=== PATIENT | female | born 1970 | race Caucasian/White ===

== ENCOUNTER 2016-04-26 12:16 | Day surgery (SDC) ==
[~2016-04-26 12:16] MED LIST: KEFZOL 1 GM/D5W 50 ML ONE; LR 1,000 ML ONE; PEPCID ONE; REGLAN ONE
[2016-04-26] MEDS ORDERED: PERCOCET-10 ONE (12:28)
[2016-04-26 12:38] LABS: HEMATOCRIT 35.8 % (37.0-47.0); HEMOGLOBIN 11.9 g/dL (12.0-16.0); MCH 28.3 PG (27-31); MCHC 33.2 g/dL (33-37); MCV 85.2 FL (81-99); MPV 9.3 FL (7.4-10.4); RBC 4.2 XMIL (4.2-5.4)
[2016-04-26 14:25] LABS: AGAP 13; BUN 15 mg/dL (8-22); CALCIUM 9.2 mg/dL (8.8-10.2); CHLORIDE 100 mmol/L (98-107); COSMO 274; POTASSIUM 4.2 mmol/L (3.5-5.1); SODIUM 137 mmol/L (136-145); TCO2 24 mmol/L (25-35)
--- NOTE | 2016-04-26 14:32 | EKG Report ---
Test Performed on : 04/26/2016 11:46:09 AM Test Reason : PER ANESTHESIA ORDERS Blood Pressure : / mmHG Vent. Rate : 058 BPM Atrial Rate : 058 BPM P-R Int : 172 ms QRS Dur : 088 ms QT Int : 446 ms P-R-T Axes : 063 045 055 degrees QTc Int : 437 ms Sinus bradycardia. with sinus arrhythmia. Otherwise normal ECG When compared with ECG of 21-AUG-2015 00:12, premature ventricular complexes. are no longer present T wave inversion no longer evident in Inferior leads T wave inversion no longer evident in Anterior leads Confirmed by Burt Heath MD ([id number]) on 04/27/2016 9:45:22 PM
[2016-04-26] MEDS ORDERED: HEPARIN ONE ×2 (15:07→15:47)
[2016-04-26] MEDS ORDERED: XYLOCAINE 1%/EPI 1:100,000 ONE (15:07)
[2016-04-26] MEDS ORDERED: MARCAINE 0.25% PF/EPI 1:200,000 ONE (15:08)
[2016-04-26] MEDS ORDERED: NS 250 ML ONE (15:08)
[2016-04-26] MEDS: MORPHINE ONE ×4 (16:13→16:43)
[2016-04-26] MEDS ORDERED: FENTANYL ONE (16:17)
[2016-04-26] MEDS ORDERED: DIPRIVAN 1% ONE (16:17)
[2016-04-26 18:15] VITALS: BP 133/80
--- NOTE | 2016-04-26 22:22 | OPERATIVE NOTE ---
PROCEDURE DATE: 04/26/2016 PREOPERATIVE DIAGNOSIS: Methicillin-resistant Staphylococcus aureus infection skin and soft tissue status post bilateral breast reduction. POSTOPERATIVE DIAGNOSIS: Methicillin-resistant Staphylococcus aureus infection skin and soft tissue status post bilateral breast reduction. PRINCIPAL PROCEDURE: Right external jugular Port-A-Cath using fluoroscopy. SURGEON: Angela Mayo MD PENCILS WASHER: MORGAN Jj. ANESTHESIA: General using LMA in addition to local anesthetic. ESTIMATED BLOOD LOSS: 10 mL. DRAINS: None. INDICATIONS: Ms Stacey Sheikh is a 45-year-old white female who has had a chronic MRSA infection with open wounds involving some of the incisions in surgery of a bilateral breast reduction. She has been seen by infectious disease Dr. Michael May and he wants to treat her as an outpatient with IV antibiotics. We were asked to place access. DESCRIPTION OF PROCEDURE: The patient was brought to the operating room, placed supine, received general anesthesia, and was ventilated using LMA. Her right neck, shoulder, and anterior chest were prepped and draped within the sterile field. We used an Ioban on the skin. She received Ancef prophylactically. We used local anesthetic at our incision sites. We made a small transverse incision base of right neck using a 15 blade scalpel and forceps and scissors were used to dissect through the subcutaneous tissue in the platysma muscle to identify the external jugular vein and we isolated the segment of this vein with two 3-0 silk ties. A counterincision was made on the anterior right chest and a subcutaneous pocket was formed for the port using cautery and blunt finger dissection. We used a blunt tunneler and a 9.6 Bangladeshi silicone catheter and we tunneled this catheter from the chest incision to the neck incision. We made a small incision in the vein using an 11-blade scalpel and through this venotomy, we placed the distal end of our 9.6- Bangladeshi silicone catheter and directed it into the superior vena cava with the help of fluoroscopy. The other end of the catheter was hooked to the port. The port was secured in its subcutaneous pocket with two 2-0 silk stitches. It was flushed with heparin saline. We liked the position of the catheter and the function of it and we closed our incisions in layers. First layer 3-0 popoff Vicryl stitches closed subcutaneous tissue. The skin was closed with 4-0 Monocryl subcuticular stitch. Steri-Strips were applied. She tolerated the procedure well with plans for her to go the recovery room and then be discharged home later today under the care of her with followup in our outpatient offices.
[2016-04-27] MEDS ORDERED: XYLOCAINE-MPF 2% ONE (09:33)
[2016-04-27] MEDS ORDERED: ROBINUL ONE (09:33)
== END 2016-04-26 17:50 | disposition home or self-care (01) ==
LOC: OR 12:16
PROVIDERS: ATTEND Surgery
DX: A49.02 Methicillin resistant Staphylococcus aureus infection, unspecified site (principal)
CPT/HCPCS: 77001; 80048; 85027; 93005; 93010; J0690; J1644; J2270; J3010; J7050; J7120

== ENCOUNTER 2016-05-03 03:56 | Emergency (ER) ==
--- NOTE | 2016-05-03 04:16 | PROVIDER DOCUMENTATION ---
HPI-Respiratory General - General Chief Complaint: Asthma Attack Stated Complaint: ASTHMA Time Seen by Provider: 05/03/16 04:13 Source: family Allergies/Adverse Reactions: Patient Allergies Allergy/AdvReac Type Severity Reaction Status Date / Time blueberry [Blueberry] Allergy Mild HIVES Verified 05/03/16 04:13 levofloxacin [From Levaquin] Allergy RASH Verified 05/03/16 04:13 sulfamethoxazole Allergy RASH Verified 05/03/16 04:13 [From Bactrim] trimethoprim [From Bactrim] Allergy RASH Verified 05/03/16 04:13 Home Medications: Home Medication List Medication Instructions Recorded Confirmed Last Taken Type Amitriptyline HCl 100 mg PO QHS 01/02/16 05/03/16 05/02/16 History Duloxetine [Cymbalta] 30 mg PO DAILY 01/02/16 05/03/16 05/03/16 History Gabapentin 600 mg PO TID 01/02/16 05/03/16 05/02/16 History Levothyroxine [Synthroid] 125 microgm PO DAILY 01/02/16 05/03/16 05/02/16 History Oxycodone HCl 20 mg PO TID 01/02/16 05/03/16 05/02/16 History Tizanidine HCl [Zanaflex] 4 mg PO BID 01/02/16 05/03/16 05/02/16 History Amlodipine Besylate [Norvasc] 5 mg PO DAILY #0 01/05/16 05/03/16 05/02/16 Rx Bisoprolol [Zebeta] 5 mg PO DAILY #0 01/05/16 05/03/16 05/02/16 Rx Bupropion S.r. [Wellbutrin Sr] 150 mg PO DAILY 04/23/16 05/03/16 05/02/16 History Hydroxychloroquine [Plaquenil] 200 mg PO BID 04/23/16 05/03/16 05/02/16 History Omeprazole [Prilosec] 40 mg PO DAILY 04/23/16 05/03/16 05/02/16 History Oxymorphone HCl [Opana ER] 10 mg PO BID 04/23/16 05/03/16 05/02/16 History Diclofenac 1% Gel [Voltaren 1% Gel] 1 applic .SEE ORDER PRN PRN 05/03/1605/02/16 History Doxycycline 1 cap PO DAILY 05/03/16 05/03/16 05/02/16 History Vancomycin 1 gm/Ns 1,200 mg IV BID 05/03/16 05/03/16 05/02/16 History - History of Present Illness-Resp Quality of Pain: reports: aching, burning Onset/Duration: reports: gradual Cough Quality/Degree: reports: mild Episode Frequency: chronic episodes Modifying Factors: improves with: nothing Associated Symptoms: reports: cough Similar Symptoms Previously?: Yes Recently seen or treated by another doctor?: Yes Review of Systems - Adult - REVIEW OF SYSTEMS - ADULT Constitutional: reports: no symptoms reported Eyes: reports: no symptoms reported Ears, Nose, Mouth & Throat: reports: no symptoms reported Cardiovascular: reports: no symptoms reported Respiratory: reports: no symptoms reported Gastrointestinal: reports: no symptoms reported Genitourinary: reports: no symptoms reported Musculoskeletal: reports: no symptoms reported Integumentary: reports: no symptoms reported Neurological: reports: no symptoms reported Psychiatric: reports: no symptoms reported Endocrine: reports: no symptoms reported Hematologic/Lymphatic: reports: no symptoms reported Allergic/Immunologic: reports: no symptoms reported All Other Systems: Reviewed and Negative Past History - Adult - PAST MEDICAL HISTORY-ADULT Review of Records: reports: Old Records Reviewed, Nursing Assessment Review, Medications Reviewed, Social history reviewed & non-contributory. Major Childhood Illnesses: reports: denies history Cardiovascular: reports: denies history, HTN Respiratory: reports: COPD Gastrointestinal: reports: denies history Obstetrical/Gynecological: reports: denies history Genitourinary: reports: denies history Musculoskeletal: reports: arthritis, chronic pain Neurological: reports: denies history Psychiatric: reports: denies history Endocrine/Immune: reports: Diabetes, thyroid disorder (hypo ) Other Conditions: reports: MRSA (Dr. Michael May Infectious disease) - PRIOR SURGERIES/PROCEDURES Surgical/Procedure History: reports: cholecystectomy, hysterectomy, tonsillectomy, other (breast) - PRIOR HOSPITALIZATIONS Prior Hospitalizations: reports: for other non-related - IMMUNIZATION STATUS Childhood Immunizations: See Nurse Assessment Flu Vaccine: UTD - FAMILY HISTORY Family History: reviewed, not pertinent - SOCIAL HISTORY Substance Use: none/never Physical Exam-General - PHYSICAL EXAM-ADULT Initial Vital Signs Reviewed: Yes - CONSTITUTIONAL General Appearance: appears well - EYES Eyes: PERRL/EOMI - HEAD, EARS, NOSE, MOUTH & THROAT HENMT: normocephalic/atraumatic - NECK Neck: non-tender - RESPIRATORY Respiratory: chest non-tender - CARDIOVASCULAR Cardiovascular: no edema Departure - Departure Time of Disposition Order: 05:50 DIAGNOSIS: Anxiety Disposition: HOME 01 Certified Medical Emergency: Emergent Condition: Stable
[2016-05-03 05:09] LABS: BASO% 0.1 % (0.0-0.8); EOS# 0.06 X1000 (0.0-0.7); EOS% 0.5 % (0.0-10.0); HEMOGLOBIN 12.2 g/dL (12.0-16.0); IMM GRAN# 0.02 X1000 (0.0-0.04); IMM GRAN% 0.2 % (0.0-0.5); LYMPH# 0.74 X1000 (1.2-3.4); LYMPH% 6.6 % (20.5-51.1); MANUAL DIFF NEEDED? NO; MCH 28.3 PG (27-31); MCHC 33.9 g/dL (33-37); MCV 83.5 FL (81-99); MONO# 0.44 X1000 (0.11-0.59); MONO% 3.9 % (1.7-9.3); MPV 9.1 FL (7.4-10.4); NEUT% 88.7 % (42.2-75.2); PLT 262 X1000 (130-400); RBC 4.31 XMIL (4.2-5.4)
[2016-05-03 05:18] LABS: PROTIME 10.6 Seconds (9.2-11.7)
[2016-05-03 05:25] VITALS: BP 146/90
[2016-05-03 05:33] LABS: AGAP 11; ALBUMIN 3.6 g/dL (3.5-5.0); ALKALINE PHOSPHATASE 79 U/L (32-104); BUN 12 mg/dL (8-22); CALCIUM 8.7 mg/dL (8.8-10.2); CHLORIDE 102 mmol/L (98-107); CK PROFILE 50 U/L (24-173); COSMO 281; GOT 15 U/L (10-30); GPT 9 U/L (10-36); MAGNESIUM 1.9 mg/dL (1.5-2.7); POTASSIUM 3.7 mmol/L (3.5-5.1); SODIUM 139 mmol/L (136-145); TCO2 26 mmol/L (25-35); TOTAL PROTEIN 6.4 g/dL (6.3-8.3)
--- NOTE | 2016-05-03 05:33 | EKG Report ---
Test Performed on : 05/03/2016 04:00:36 AM Test Reason : SOB Blood Pressure : / mmHG Vent. Rate : 097 BPM Atrial Rate : 097 BPM P-R Int : 172 ms QRS Dur : 090 ms QT Int : 386 ms P-R-T Axes : 058 063 040 degrees QTc Int : 490 ms Normal sinus rhythm. Cannot rule out Anterior infarct , age undetermined Abnormal ECG When compared with ECG of 26-APR-2016 11:46, Vent. rate has increased BY 39 BPM QT has lengthened Unconfirmed Result
--- NOTE | 2016-05-03 07:22 | Diag Imaging Result Document ---
PROCEDURE NAME: CHEST-PORTABLE - 05/03/2016 ERECT AP PORTABLE CHEST AT 0455 HOURS: FINDINGS: There is a Port-A-Cath on the right with its tip in the superior vena cava. There is mild interstitial pulmonary edema. This is worse than on 01/03/2016. IMPRESSION: Mild pulmonary edema.
== END 2016-05-03 06:07 | disposition home or self-care (01) ==
LOC: ED 03:56
DX: F41.9 Anxiety disorder, unspecified (principal); R05 Cough; L98.9 Disorder of the skin and subcutaneous tissue, unspecified; I10 Essential (primary) hypertension; J44.9 Chronic obstructive pulmonary disease, unspecified; E11.9 Type 2 diabetes mellitus without complications; E03.9 Hypothyroidism, unspecified; Z79.899 Other long term (current) drug therapy; Z86.14 Personal history of Methicillin resistant Staphylococcus aureus infection
CPT/HCPCS: 71010; 80053; 82550; 83735; 83880; 84484; 85025; 85610; 85730; 93005; 99284